=== PATIENT | female | born 1985 | race Two or more races ===

== ENCOUNTER 2016-08-08 02:17 | Emergency (ER) | payer MEDICAID, OTHER ==
[~2016-08-08] VITALS: Ht 149.9 cm; Wt 49.9 kg
[~2016-08-08 02:17] MED LIST: BACTRIM DOUBLE S1 E1 ORAL; PHENAZOPYRIDIN100 MG ORAL
[2016-08-08 03:18] VITALS: BP 122/73
[2016-08-08 04:15] VITALS: BP 118/72
[2016-08-08 04:20] VITALS: BP 118/72
--- NOTE | 2016-08-08 22:57 | Emergency Room Report ---
History of Present Illness General Chief Complaint: General Complaint Source: Patient Present Illness HPI 31YOF walk-in patient with partner with 1 day of intermittent "cold feeling like water rushing over my head" and dizziness and "tickling" feeling to my knees and heart racing after taking "medications for flu" for 1 week including promezine/codeine, albuterol and Z-pack. Never experienced these symptoms before. Started only after taking meds. Feels like "flu" symptoms have resolved. Currently feels better "sitting here in the ER." No known drug allergies. No other medical problems. Denies drug use. Allergies: Coded Allergies: NO KNOWN ALLERGIES (Unverified Allergy, Unknown, 04/14/15) Patient History Past Medical History: none Past Surgical History: none Pertinent Family History: none Social History: Denies: alcohol use, drug use, smoking Last Menstrual Period: 08/03/2016 Now: No Immunizations: UTD Reviewed Nursing Documentation: PMH: Agreed, PSxH: Agreed Nursing Documentation-PMH Past Medical History: No Stated History Review of Systems All Other Systems: negative except mentioned in HPI Physical Exam Vital Signs Date Time Temp Pulse Resp B/P Pulse Ox O2 Delivery O2 Flow Rate FiO2 08/08/16 02:32 98.6 85 22 122/73 100 Room Air Sp02 EP Interpretation: reviewed, normal General Appearance: normal inspection, well appearing, no apparent distress, alert, GCS 15, non-toxic, other - sitting comfortably with partner, interactive , friendly Head: normocephalic, atraumatic Eyes: bilateral eye EOMI, bilateral eye PERRL ENT: normal ENT inspection, hearing grossly normal, normal voice Neck: normal inspection, full range of motion, supple, no bony tend Cardiovascular #1: regular rate, rhythm, no edema Gastrointestinal: normal inspection, normal bowel sounds, non tender, soft, no guarding, no hernia Genitourinary: no CVA tenderness Musculoskeletal: normal inspection, back normal, normal range of motion, Alvin' s Sign negative Neurologic: normal inspection, alert, oriented x3, responsive, polisher implant III-XII nml as tested, motor strength/tone normal, speech normal Psychiatric: normal inspection, judgement/insight normal, mood/affect normal Skin: normal inspection, normal color, no rash Lymphatic: normal inspection Medical Decision Making Diagnostic Impression: Primary Impression: Encounter for generalized patient complaints ER Course Symptoms possibly consistent with adverse effects of albuterol and codeine use especially since started after taking these meds for the first time. Patient is also very anxious Provided calm reassurance. Significant time spent discussing with patient and her partner Advised to STOP all medications, especially since she is feeling better vis-a- vis the flulike illness F/up with PMD as needed DC home Last Vital Signs Date Time Temp Pulse Resp B/P Pulse Ox O2 Delivery O2 Flow Rate FiO2 08/08/16 04:20 98.6 71 22 118/72 100 Room Air Status: improved Disposition: HOME, SELF-CARE Condition: Improved Referrals: [facility],REFERRING (PCP) Patient Instructions: Medical Screening Exam Additional Instructions: STOP all medications you were taking for flu Follow up with your doctor if symptoms persist JENI TAO M.D. Aug 08, 2016 22:57
== END 2016-08-08 04:20 | disposition home or self-care (01) ==
LOC: EMR 03:18
DX: R42 Dizziness and giddiness (principal); R20.2 Paresthesia of skin
CPT/HCPCS: 99282